=== PATIENT | female | born 1975 | race Caucasian/White ===

== ENCOUNTER 2019-07-14 13:24 | Emergency (ER) | payer OTHER, SELFPAY ==
[2019-07-14] VITALS (10 sets, daily range): BP systolic 129–154; BP diastolic 95–117; PULSE 99–110; RESP 11–26; TEMP 37.1; O2SAT 98–100
--- NOTE | 2019-07-14 13:56 | ED.HA ---
HPI - Headache General Chief Complaint: Headache Stated Complaint: headache/high blood pressure Time Seen by Provider: 07/14/19 13:49 Source: patient Mode of arrival: ambulatory Limitations: no limitations History of Present Illness HPI Narrative: The pt is a 43 y/o female who presents to the ED c/o intermittent MORRIS onset 2 weeks ago. Pt states that the MORRIS is frontal and occipital and feels like an ache. She notes that she does have a history of migraines, and has felt like one so far. She notes that she has been experiencing stress recently. She notes that nothing otherwise worsens or improves her pain. 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 She then came here as a result. Pertinent past history: migraines Onset (ago): week(s) (2) Location: frontal and occipital Severity: similar to previous episodes Quality & Timing: aching and intermittent Exacerbating factors: none Relieving factors: nothing Associated symptoms: other (Feeling stressed) Related Data Home Medications Medication Instructions Recorded Confirmed alprazolam 05/19/19 buspirone mg 05/19/19 cyclobenzaprine mg 05/19/19 hydrocodone-acetaminophen 05/19/19 hydroxyzine HCl 05/19/19 lubiprostone [Amitiza] 24 mcg PO DAILY 05/19/19 meloxicam 05/19/19 pantoprazole PO 05/19/19 quetiapine 05/19/19 Allergies Allergy/AdvReac Type Severity Reaction Status Date / Time cephalexin Allergy Intermediate Hives Verified 07/14/19 13:57 metoclopramide Allergy Intermediate EYES AND Verified 07/14/19 13:57 HEART RATE PROBLEMS gluten Allergy Mild Unknown Verified 07/14/19 13:57 wheat Allergy Unknown Unknown Verified 07/14/19 13:57 Review of Systems Review of Systems: All systems reviewed & are unremarkable except as noted in HPI and below Neurologic: Reports headache(s) (Frontal and occipital, aching, intermittent) Psychiatric: Psychiatric: Reports other (Feeling stressed ) [facility] Past Medical History Medical History (Updated 07/14/19 @ 16:09 by Chintan Burgos MD) Anxiety Endometriosis Hx of migraines IBS (irritable bowel syndrome) TMJ (dislocation of temporomandibular joint) Surgical History Surgical History (Updated 05/19/19 @ 14:35 by Hakan Davalos) History of colonoscopy History of nasal surgery S/P laparoscopic surgery x3 Social History Social History (Updated 07/14/19 @ 14:06 by Bg Lester) Occupation/Education: occupation Additional occupation/education comments: Nurse Gender identity (if verbalized by the patient): Female Exam Narrative: Exam Narrative: General appearance: Well-developed, well-nourished, with crying spells Skin: Normal color Head: Normocephalic, nontraumatic Eyes: Clear conjunctiva ENT: Oropharynx normal, ears normal, nose normal Neck: Supple, nontender Chest and respiratory: Airway patent, no respiratory distress, no accessory muscle use Heart: Regular rate/rhythm Abdomen: Soft, nontender, no organomegaly, quiet bowel sounds Vascular: Normal peripheral pulses, normal capillary refill. Musculoskeletal: Normal range of motion, nontender back Neurologic: Alert and oriented ?3, MAINTENANCE OF WAY [employer]EMAN is normal as tested, no gross motor deficit Course Course Emergency Course: Improved Vital Signs Vital signs: Vital Signs Pulse Rate 99 07/14/19 13:53 Respiratory Rate 11 L 07/14/19 13:53 Blood Pressure 129/117 H 07/14/19 13:53 Pulse Oximetry 100 07/14/19 13:53 Temperature 37.1 C 07/14/19 13:54 Pulse Rate 108 H 07/14/19 15:46 Respiratory Rate 26 H 07/14/19 15:46 Blood Pressure 142/97 H 07/14/19 15:46 Pulse Oximetry 98 07/14/19 15:46
[2019-07-14] MEDS: SODIUM CHLORIDE 0.9% IV 1,000 ML 999 ML IV CONT (14:29)
[2019-07-14] MEDS: KETOROLAC 30 MG/ML VIAL (*BKC) IV PUSH (14:29)
[2019-07-14] MEDS: ONDANSETRON INJ 4 MG/2 ML VIAL IV PUSH (14:29)
[2019-07-14] MEDS: LORAZEPAM INJ 2 MG/ML VIAL 1 MG IV PUSH (14:29)
== END 2019-07-14 16:22 | disposition home or self-care (01) ==
PROVIDERS: Emergency Provider Emergency Medicine
DX: G44.209 Tension-type headache, unspecified, not intractable (principal); F41.9 Anxiety disorder, unspecified; N80.9 Endometriosis, unspecified; K58.9 Irritable bowel syndrome, unspecified
CPT/HCPCS: 96361; 96374; 96375; 99284; J1885; J2060; J2405; J7030

== ENCOUNTER 2021-04-09 13:01 | Outpatient (CLI) | payer OTHER, SELFPAY ==
--- NOTE | ~2021-04-09 | US_ITS ---
EXAMINATION: US venous doppler LE RT DATE: 04/09/2021 13:31 INDICATION: Right lower limb pain TECHNIQUE: Quintana scale images without and with compression and Doppler images of the right lower extre mity veins were obtained. COMPARISON: 09/23/2018 FINDINGS: The right common femoral vein, profunda femoral vein, femoral vein, popliteal vein, peronea l trunk, posterior tibial veins, and greater saphenous vein are patent. IMPRESSION: 1. Patent right lower extremity veins. No evidence of deep venous thrombosis. Reviewed, dictated and finalized at location A. 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
== END 2021-04-09 13:02 | disposition home or self-care (01) ==
PROVIDERS: PCP Advanced Practice Midwife; Visit Provider Advanced Practice Midwife
DX: M79.604 Pain in right leg (principal)
CPT/HCPCS: 93971

== ENCOUNTER 2021-12-05 13:59 | Outpatient (CLI) | payer OTHER, SELFPAY ==
--- NOTE | ~2021-12-05 | US_ITS ---
US abdomen complete EXAMINATION: US Abdomen Complete INDICATION: Abdomen pain PROCEDURE: Realtime High Resolution abdomen ultrasound. COMPARISON: No prior studies for comparison FINDINGS: Gallbladder is contracted limiting evaluation for gallstones. Common bile duct measures 3 mm. Liver echotexture is increased, consistent with fatty infiltration.. Pancreas within normal limits. Pancreatic tail is obscured by bowel gas. Spleen is unremarkeable. Renal echotexture is within norm al limits bilaterally without hydronephrosis, contour deforming mass or renal stone. Right kidney kimmy sures 10.7 cm. Left kidney measures 10.1 cm. Visualized aspects of the aorta and IVC are within normal limits. Portal vein is patent. No sonograph ic Mercado's sign indicated by the technologist. IMPRESSION: 1: Hepatic steatosis. 2: Contracted gallbladder limiting evaluation for stones. Reviewed, dictated and finalized at location A.
== END 2021-12-05 14:00 ==
LOC: MICIMG 14:02
PROVIDERS: PCP Advanced Practice Midwife; Visit Provider Advanced Practice Midwife
DX: R10.9 Unspecified abdominal pain (principal); K76.0 Fatty (change of) liver, not elsewhere classified
CPT/HCPCS: 76700

== ENCOUNTER → 2022-03-04 11:09 | Outpatient (CLI) | payer OTHER, SELFPAY ==
--- NOTE | ~2022-03-04 | MM_ITS ---
EXAMINATION: MM screening dolly BI w alma HISTORY: Screening TECHNIQUE: Craniocaudal and mediolateral oblique 3-D tomosynthesis images were obtained and synthetic 2-D images were generated. CAD analysis was submitted and interpreted. COMPARISON: No prior mammogram is available for comparison at this institution. BREAST PARENCHYMAL COMPOSITION: There are scattered areas of fibroglandular density. FINDINGS: There is no evidence of suspicious mass, calcification, or architectural distortion to sugg est malignancy in either breast. There has been no suspicious interval change. IMPRESSION: 1. No mammographic evidence of malignancy. 2. Recommend routine screening mammography in one year. BI-RADS Category 1: Negative Reviewed, dictated and finalized at location A.
== END ==
PROVIDERS: PCP Advanced Practice Midwife; Visit Provider Advanced Practice Midwife
DX: Z12.31 Encounter for screening mammogram for malignant neoplasm of breast (principal)
CPT/HCPCS: 77063; 77067

== ENCOUNTER 2022-04-03 17:38 | Emergency (ER) | payer OTHER, SELFPAY ==
[2022-04-03 17:48] VITALS: BP 171/98; PULSE 103; RESP 18; TEMP 36.6; O2SAT 97
--- NOTE | 2022-04-03 18:14 | ED.URI ---
HPI - URI/Sore Throat General Chief Complaint: Upper Respiratory Infection Stated Complaint: Sore Throat, Headache,Cough Time Seen by Provider: 04/03/22 18:20 Source: patient and RN notes reviewed Mode of arrival: ambulatory Limitations: no limitations History of Present Illness HPI Narrative: 46-year-old female presents concern for 4 day history of sinus congestion, drainage, headache, scratchy throat. Reports symptoms started Thursday. Reports she had a negative COVID test at home. She reports her drainage turned green today. She reports she has taken antihistamine and nasal decongestant at home. MD elicited complaint: sore throat, rhinorrhea and nasal congestion Related Data Home Medications Medication Instructions Recorded Confirmed buspirone 15 mg tablet 15 mg PO DAILY 04/03/22 04/03/22 escitalopram oxalate 10 mg tablet 10 mg PO DAILY 04/03/22 04/03/22 hydroxyzine HCl 50 mg tablet 50 mg PO DIRECTED 04/03/22 04/03/22 propranolol 80 mg capsule,24 80 mg PO DAILY 04/03/22 04/03/22 hr,extended release quetiapine 100 mg tablet 100 mg PO DAILY 04/03/22 04/03/22 Allergies Allergy/AdvReac Type Severity Reaction Status Date / Time cephalexin Allergy Intermediate Hives Verified 04/03/22 17:41 metoclopramide Allergy Intermediate EYES AND Verified 04/03/22 17:41 HEART RATE PROBLEMS gluten Allergy Mild Unknown Verified 04/03/22 17:41 wheat Allergy Unknown Unknown Verified 04/03/22 17:41 Review of Systems Review of Systems: CONSTITUTIONAL: Denies malaise, chills, sweats, or fever. EYES: Denies visual changes, redness, or discharge. ENT: Reports rhinorrhea, congestion, sinus pain, otalgia and sore throat. CARDIOVASCULAR: Denies chest pain, palpitations, or edema. RESPIRATORY: Reports cough. Denies dyspnea. GASTROINTESTINAL: Denies abdominal pain, nausea, vomiting, diarrhea SKIN: Denies rash or itching. MUSCULOSKELETAL: Denies myalgia. NEUROLOGIC: Denies headache. All systems reviewed & are unremarkable except as noted in HPI and below PMFSH Past Medical History Medical History (Updated 04/03/22 @ 18:26 by Shannon Jay NP) Anxiety Endometriosis Hx of migraines IBS (irritable bowel syndrome) TMJ (dislocation of temporomandibular joint) Surgical History Surgical History (Updated 05/19/19 @ 14:35 by Hakan Davalos) History of colonoscopy History of nasal surgery S/P laparoscopic surgery x3 Social History Social History (Updated 07/14/19 @ 14:06 by Bg Lester) Additional occupation/education comments: Nurse Gender identity (if verbalized by the patient): Female Comments At time of signature, agree with nursing past medical, surgical, social and family history. There is no relevant family history pertinent to the presenting complaint Exam Narrative: GENERAL: Well-appearing, well-nourished, and in no acute distress. HEAD: Normocephalic EYES: PERRLA, conjunctivae clear ENT: Nares clear, turbinates edematous and erythematous, clear discharge. Mucous membranes moist. TM pearly plasencia with dull light reflex bilaterally; no tragal tenderness. Oropharynx not erythematous without lesions. Tonsils not enlarged and without exudate, no drooling, no hoarseness, no trismus, uvula midline. NECK: Supple. No lymphadenopathy CHEST: Clear to auscultation, breath sounds equal. No wheezing, rhonchi, rales, or stridor. No respiratory distress, speaks in full sentences. HEART: Regular rate and rhythm. No murmur heard. SKIN: Warm, dry, no rash. NEURO: Alert and oriented x3. PSYCH: Normal mood and affect Course Course Emergency Course: Patient is aware of diagnosis, understands and agrees to treatment plan. Anticipatory guidance given. Patient agrees to follow-up as directed and is aware of reasons to seek care at the emergency department. Portions of this record may have been created with voice recognition software Level of Care: Express Care Visit Vital Signs Vital signs: Vital Signs Temperature 9
== END 2022-04-03 18:32 | disposition home or self-care (01) ==
PROVIDERS: Emergency Provider Nurse Practitioner; PCP Advanced Practice Midwife
DX: J06.9 Acute upper respiratory infection, unspecified (principal); N80.9 Endometriosis, unspecified; F41.9 Anxiety disorder, unspecified
CPT/HCPCS: 99213; G0463

== ENCOUNTER 2024-03-15 15:05 | Outpatient (CLI) | payer OTHER, SELFPAY ==
--- NOTE | ~2024-03-15 | MM_ITS ---
EXAMINATION: MM screening dolly BI w alma HISTORY: Screening mammogram TECHNIQUE: Craniocaudal and mediolateral oblique 3-D tomosynthesis images were obtained and synthetic 2-D images were generated. CAD analysis was submitted and interpreted. COMPARISON: 03/04/2022 BREAST PARENCHYMAL COMPOSITION:Not Dense. There are scattered areas of fibroglandular density. FINDINGS: No suspicious mass, calcification, or architectural distortion are identified in either isha ast to suggest malignancy. There has been no suspicious interval change. IMPRESSION: No mammographic evidence of malignancy. Recommend routine screening mammography in one year. BI-RADS Category 1: Negative Reviewed, dictated and finalized at location . OW SECRETARY
== END 2024-03-15 15:06 | disposition home or self-care (01) ==
LOC: ANHIMG 15:06
PROVIDERS: PCP Advanced Practice Midwife; Visit Provider Advanced Practice Midwife
DX: Z12.31 Encounter for screening mammogram for malignant neoplasm of breast (principal)
CPT/HCPCS: 77063; 77067